=== PATIENT | female | born 1955 | race Caucasian/White ===

== ENCOUNTER 2017-10-14 05:05 | Inpatient (IN) | payer MEDICARE ==
[~2017-10-14] VITALS: Ht 165.1 cm; Wt 66.3 kg
--- NOTE | ~2017-10-14 | OP ---
PATIENT NAME: EDWIN CELESTE MEDICAL RECORD: [id number] :57 LOCATION:D.M2 D.2140 ADMISSION DATE:10/14/17 SURGEON: CHENCHO ROSE MD DATE OF OPERATION: 10/15/2017 PREOPERATIVE DIAGNOSIS: Perirectal abscess. POSTOPERATIVE DIAGNOSES: Perirectal abscess with no evidence of a perirectal fistula. PROCEDURES: 1. Anal evaluation under anesthesia. 2. Excisional debridement of perirectal abscess with marsupialization and packing of the wound. The dimensions of the debridement, including margins, measured 2.2 x 2.0 cm included skin and subcutaneous tissue as well as a portion of the abscess cavity. The risks, possible complications and alternatives to the procedure were explained to the patient. She elects to proceed. OPERATIVE COURSE: The patient was conveyed to the operating room electively on 10/15/2017. General anesthesia was induced by the anesthesia staff. The patient was placed in a lithotomy position. U-shaped anal retractors were placed within the anus. I identified the area where the abscess was pointing out on to the right buttock cheek and I injected a combination of hydrogen peroxide and methylene blue in through this area where the abscess was pointing. There was some purulent drainage and this was cultured. I examined within the anus and rectum and there was no bubbling of hydrogen peroxide or methylene blue in the anus or rectum and therefore, no evidence of a perirectal or perianal fistula. Utilizing sharp dissection with the scalpel, I excised a plug of tissue overlying the abscess cavity. The dimensions of the excision are listed above. I excised back to healthy bleeding tissue. Some blunt dissection in the abscess cavity was performed. It traveled up into the right labia majora. Also, laterally on the buttock and posteriorly. I curetted out the abscess cavity with a bone curette. Meticulous hemostasis was achieved with electrocautery. I irrigated with hydrogen peroxide. I then marsupialized the wound with a running locking 3-0 Vicryl Rapide suture. I then packed the wound with a Dakin's soaked Kerlix roll. A sterile dressing was then applied. The patient was then extubated and conveyed to the post-anesthesia care unit where she was in stable condition. I am going to likely change the antibiotics that she is on and I will plan to keep the packing in place for about 3 days before removing it. I would like for her to stay in the hospital for 3 days due to the large size of the abscess cavity. I believe that she needs intravenous antibiotics at this time. TRANSINT:[id number] Voice Confirmation ID: [id number] DOCUMENT ID: [id number] OPERATIVE REPORT [id number] EDWIN CELESTE ROBERT MD at 1047 CC: [id number] DICTATION DATE: 10/15/17 1112 ENDOSCOPY NURSE: 10/15/17 1128 DIS IN 10/17/17 [id number] [place] [address]
[2017-10-14] MEDS ORDERED: RANITIDINE H15 MG/ML PO (05:19)
[2017-10-14] MEDS ORDERED: BENADRYL25 MG (05:20)
[2017-10-14 07:42] LABS: APPEARANCE CLEAR (CLEAR); BILIRUBIN NEGATIVE (NEGATIVE); COLOR YELLOW (YELLOW); GLUCOSE NEGATIVE (NEGATIVE); KETONE NEGATIVE (NEGATIVE); NITRITE NEGATIVE (NEGATIVE); PROTEIN 1+ mg/dL (NEGATIVE); UROBILINOGEN NORMAL (NORMAL)
[2017-10-14 07:43] LABS: BACTERIA FEW /hpf (NONE SEEN); EPITHELIAL CELLS 0-5 /hpf (0-5); HYALINE CAST 0-5 /lpf (NONE SEEN); RED CELLS - URINE 0-5 /hpf (0-5); WHITE CELLS - URINE 0-5 /hpf (0-5)
[2017-10-14 07:49] LABS: UDS - AMPHET POSITIVE QUAL (NEGATIVE); UDS - BARB NEGATIVE QUAL (NEGATIVE); UDS - BENZO NEGATIVE QUAL (NEGATIVE); UDS - COCAINE NEGATIVE QUAL (NEGATIVE); UDS - OPIATE NEGATIVE QUAL (NEGATIVE); UDS - PCP NEGATIVE QUAL (NEGATIVE); UDS - THC POSITIVE QUAL (NEGATIVE)
[2017-10-14 09:02] LABS: BASOPHILS 0.1 % (0-2); EOSINOPHILS 0.6 % (0-7); HEMATOCRIT 27.3 % (36.0-48.0); HEMOGLOBIN 8.9 g/dL (12-16); IMMATURE GRANULOCYTES 0.5 % (0-5); LYMPHOCYTES 10.1 % (15-50); MCH 22.1 pg (26.0-34.0); MCHC 32.6 g/dL (31.0-37.0); MCV 67.7 fL (80.0-100.0); MEAN PLATELET VOLUME 9.9 fL (7.4-10.4); MONOCYTES 7.5 % (2-11); NEUTROPHILS 81.2 % (40-80); PLATELET COUNT 178 10x3/uL (130-400); RBC 4.03 10x6/uL (4.00-5.40); RDW 15.3 % (11.5-14.5); WBC 19.2 10x3/uL (4.8-10.8)
[2017-10-14 09:16] LABS: ALBUMIN 3.5 g/dL (3.4-5.0); ANION GAP 11.4 mmol/L (8-16); BILIRUBIN - TOTAL 0.51 mg/dL (0.2-1.3); CALCIUM 8.6 mg/dL (8.5-10.1); CARBON DIOXIDE 25.5 mmol/L (21.0-32.0); CREATININE - SERUM 1.3 mg/dL (0.6-1.3); POTASSIUM - SERUM 3.9 mmol/L (3.5-5.1); PROTEIN - SERUM 7.4 g/dL (6.4-8.2)
[2017-10-14 09:45] VITALS: BP 128/64
[2017-10-14 11:01] VITALS: BP 128/64; Ht 165.1 cm; Wt 66.3 kg
[2017-10-14 16:40] VITALS: BP 112/68
[2017-10-14 21:20] VITALS: BP 111/52
[2017-10-15 02:00] VITALS: BP 108/57
[2017-10-15 06:00] VITALS: BP 109/48
[2017-10-15 08:00] VITALS: BP 107/53
[2017-10-15 13:22] VITALS: BP 102/58
[2017-10-15 17:22] VITALS: BP 131/60
[2017-10-15 20:00] VITALS: BP 119/53
[2017-10-16] VITALS (7 sets, daily range): BP systolic 105–137; BP diastolic 39–101
[2017-10-16 05:05] LABS: BASOPHILS 0.1 % (0-2); EOSINOPHILS 0.9 % (0-7); HEMATOCRIT 22.9 % (36.0-48.0); IMMATURE GRANULOCYTES 0.2 % (0-5); LYMPHOCYTES 15.4 % (15-50); MCH 21.4 pg (26.0-34.0); MCHC 32.3 g/dL (31.0-37.0); MCV 66.4 fL (80.0-100.0); MEAN PLATELET VOLUME 9.6 fL (7.4-10.4); MONOCYTES 7.7 % (2-11); NEUTROPHILS 75.7 % (40-80); PLATELET COUNT 147 10x3/uL (130-400); RBC 3.45 10x6/uL (4.00-5.40); RDW 15.2 % (11.5-14.5)
[2017-10-16 05:08] LABS: HEMOGLOBIN 7.4 g/dL (12-16); WBC 10.5 10x3/uL (4.8-10.8)
[2017-10-16 05:20] LABS: ALKALINE PHOSPHATASE 161 U/L (46-116); ALT (SGPT) 27 U/L (10-68); BILIRUBIN - TOTAL 0.61 mg/dL (0.2-1.3); CARBON DIOXIDE 26.1 mmol/L (21.0-32.0); CHLORIDE - SERUM 105 mmol/L (98-107); GLUCOSE 97 mg/dL (74-106); MAGNESIUM - SERUM 1.6 mg/dL (1.8-2.4); PHOSPHOROUS 2.1 mg/dL (2.5-4.9); POTASSIUM - SERUM 3.5 mmol/L (3.5-5.1); PROTEIN - SERUM 5.9 g/dL (6.4-8.2); SODIUM 139 mmol/L (136-145)
[2017-10-16 05:26] LABS: ALBUMIN 2.6 g/dL (3.4-5.0); CALC OSMOLALITY 275 mosm/kg (275-300); CREATININE - SERUM 0.8 mg/dL (0.6-1.3); UREA NITROGEN 6 mg/dL (7-18); eGFR NON AFRICAN AMERICAN 77 mL/min (90-120)
[2017-10-17 04:00] VITALS: BP 142/83
[2017-10-17 05:46] LABS: BASOPHILS 0.1 % (0-2); EOSINOPHILS 1.1 % (0-7); HEMATOCRIT 23.6 % (36.0-48.0); IMMATURE GRANULOCYTES 0.5 % (0-5); LYMPHOCYTES 20.4 % (15-50); MCH 21.3 pg (26.0-34.0); MCHC 31.8 g/dL (31.0-37.0); MEAN PLATELET VOLUME 9.6 fL (7.4-10.4); MONOCYTES 8.9 % (2-11); PLATELET COUNT 176 10x3/uL (130-400); RBC 3.52 10x6/uL (4.00-5.40); RDW 15.1 % (11.5-14.5); WBC 8.1 10x3/uL (4.8-10.8)
[2017-10-17 05:53] LABS: HEMOGLOBIN 7.5 g/dL (12-16)
[2017-10-17 06:09] LABS: CALC OSMOLALITY 281 mosm/kg (275-300); CARBON DIOXIDE 32.1 mmol/L (21.0-32.0); CHLORIDE - SERUM 106 mmol/L (98-107); CREATININE - SERUM 0.8 mg/dL (0.6-1.3); GLUCOSE 93 mg/dL (74-106); POTASSIUM - SERUM 3.6 mmol/L (3.5-5.1); SODIUM 143 mmol/L (136-145); eGFR NON AFRICAN AMERICAN 77 mL/min (90-120)
[2017-10-17 06:10] LABS: MAGNESIUM - SERUM 2.1 mg/dL (1.8-2.4); UREA NITROGEN 3 mg/dL (7-18)
[2017-10-17 08:08] VITALS: BP 121/70
[2017-10-17 11:00] VITALS: BP 101/54
[2017-10-17 15:50] VITALS: BP 135/70
[2017-10-17] MEDS ORDERED: BACTRIM DS TABL1 TAB PO (17:59)
[2017-10-18 08:18] LABS: IMMUNOGLOBULIN A 153 mg/dL (87-352); IMMUNOGLOBULIN G 599 mg/dL (700-1600)
[2017-10-19 22:15] LABS: IMMUNOGLOBULIN E 393 IU/mL (0-100)
== END 2017-10-17 22:30 | disposition home or self-care (01) | DRG 356 ==
LOC: D.ER 05:05 → D.EDHOLD 07:47 → D.M2 07:47
PROVIDERS: Family Medicine; Internal Medicine Pulmonary Disease; Surgery
PROC: 0JB90ZZ Excision of Buttock Subcutaneous Tissue and Fascia, Open Approach (ICD-10-PCS; principal; 2017-10-15 09:00)
DX: K61.1 Rectal abscess (principal); J69.0 Pneumonitis due to inhalation of food and vomit; J95.89 Other postprocedural complications and disorders of respiratory system, not elsewhere classified; J44.1 Chronic obstructive pulmonary disease with (acute) exacerbation; M35.1 Other overlap syndromes; J98.11 Atelectasis; Y83.8 Other surgical procedures as the cause of abnormal reaction of the patient, or of later complication, without mention of misadventure at the time of the procedure; Y92.238 Other place in hospital as the place of occurrence of the external cause; F17.200 Nicotine dependence, unspecified, uncomplicated; J30.9 Allergic rhinitis, unspecified; K21.9 Gastro-esophageal reflux disease without esophagitis; E78.5 Hyperlipidemia, unspecified; N20.0 Calculus of kidney; D56.9 Thalassemia, unspecified; F15.90 Other stimulant use, unspecified, uncomplicated; F12.90 Cannabis use, unspecified, uncomplicated

== ENCOUNTER 2018-01-26 10:50 | Day surgery (SDC) | payer MEDICARE ==
[~2018-01-26] VITALS: Ht 165.1 cm; Wt 65.9 kg
--- NOTE | ~2018-01-26 | OP ---
PATIENT NAME: EDWIN CELESTE MEDICAL RECORD: [id number] :57 [facility] AD[facility] DATE: SURGEON: OSCAR ROSE MD DATE OF OPERATION: 01/27/2018 PREOPERATIVE DIAGNOSIS: Right medial thigh abscess. POSTOPERATIVE DIAGNOSIS: Right medial thigh abscess. PROCEDURES: Excisional debridement with marsupialization and packing of right medial thigh abscess. Dimensions of the debridement, including margins, measures 2.8 x 3.0 cm included skin and subcutaneous tissue as well as a portion of the abscess cavity. SURGEON: Oscar Rose MD REED POLISHER: None. BLOOD LOSS: Minimal. ANESTHESIA: General. COMPLICATIONS: None. The risks, possible complications, and alternatives to the procedure were explained to the patient. She elects to proceed. The patient has had cutaneous abscesses in the past. One was a perirectal abscess. We discussed the possible pathophysiology of these recurrent abscesses. In the future the patient may benefit from nasal decolonization. She does not have a primary care physician. I saw her in the office on and she was scheduled for surgery on Monday; however, the operative day ran long and it was not until well after midnight that her operation took place. OPERATIVE COURSE: The patient was conveyed to the operating room electively on 01/27/2018. General anesthesia was induced by the anesthesia staff. The patient was placed in a frog-leg position. The thigh and perineum were sterilely prepped and draped. Utilizing a scalpel, I excised the skin and subcutaneous tissue down into the abscess cavity. Purulence was identified. Cultures were obtained. This was a sharp debridement with a scalpel. The dimensions of debridement are listed above. I then obtained meticulous hemostasis with electrocautery. I then marsupialized the wound with a running locking 3-0 Vicryl Rapide suture. I irrigated with hydrogen peroxide. I then packed the wound with iodoform gauze. A sterile dressing was applied. The patient was then extubated and conveyed to post-anesthesia care unit where she was in stable condition. Due to the very engineer process hour, our plan that she will stay for several hours and be dismissed home later today. I am going to plan to send her home with doxycycline. I have already written her for an analgesic when I saw her in the office yesterday. TRANSINT:[id number] Voice Confirmation ID: [id number] DOCUMENT ID: [id number] 01/30/2018 Edited for syrup maker cook error, dmm. OPERATIVE REPORT [id number] EDWIN CELESTE, OSCAR GIFFORD at 1522 CC: [id number] DICTATION DATE: 01/27/18 0424 ASSEMBLY LINE SUPERVISOR: 01/27/18 0553 [facility] 01/27/18 [place] [id number] [place] [id number]
[~2018-01-26 10:50] MED LIST: BACTRIM DS TABL1 TAB PO; BENADRYL25 MG; RANITIDINE H15 MG/ML PO
[2018-01-26] MEDS ORDERED: NORCO 5/325 TAB1 TAB PO (13:13)
[2018-01-26 13:20] VITALS: BP 126/74; BMI 24.3
[2018-01-26 22:33] LABS: HEMATOCRIT 31.2 % (36.0-48.0); HEMOGLOBIN 9.8 g/dL (12-16); MCH 21.8 pg (26.0-34.0); MCHC 31.4 g/dL (31.0-37.0); MCV 69.5 fL (80.0-100.0); MEAN PLATELET VOLUME 9.3 fL (7.4-10.4); RBC 4.49 10x6/uL (4.00-5.40); RDW 14.4 % (11.5-14.5); WBC 6.9 10x3/uL (4.8-10.8)
[2018-01-26 22:42] LABS: CALC OSMOLALITY 277 mosm/kg (275-300); CALCIUM 8.8 mg/dL (8.5-10.1); CARBON DIOXIDE 28.5 mmol/L (21.0-32.0); CHLORIDE - SERUM 105 mmol/L (98-107); CREATININE - SERUM 0.8 mg/dL (0.6-1.3); GLUCOSE 86 mg/dL (74-106); POTASSIUM - SERUM 3.6 mmol/L (3.5-5.1); SODIUM 140 mmol/L (136-145); UREA NITROGEN 12 mg/dL (7-18); eGFR NON AFRICAN AMERICAN 77 mL/min (90-120)
[2018-01-27] VITALS: BP 150/68
[2018-01-27 01:29] VITALS: BP 150/68; Ht 165.1 cm; Wt 65.9 kg
[2018-01-27 05:11] VITALS: BP 110/60
[2018-01-27 07:29] LABS: ANION GAP 11.8 mmol/L (8-16); BILIRUBIN - TOTAL 0.29 mg/dL (0.2-1.3); CALCIUM 8.5 mg/dL (8.5-10.1); CARBON DIOXIDE 27.8 mmol/L (21.0-32.0); POTASSIUM - SERUM 3.6 mmol/L (3.5-5.1); PROTEIN - SERUM 6.4 g/dL (6.4-8.2)
[2018-01-27 13:15] VITALS: BP 124/68
[2018-01-27] MEDS ORDERED: MONODOX100 MG PO (14:12)
== END 2018-01-27 17:45 | disposition home or self-care (01) ==
LOC: D.OPS 10:50 → D.MS 21:26 → D.OPS 01-27 17:45
PROVIDERS: Anesthesiology; Surgery
DX: L02.415 Cutaneous abscess of right lower limb (principal); Z01.812 Encounter for preprocedural laboratory examination

== ENCOUNTER 2019-01-05 11:21 | Emergency (ER) | payer MEDICARE ==
[~2019-01-05] VITALS: Ht 165.1 cm; Wt 63.6 kg
[~2019-01-05 11:21] MED LIST changes: +MONODOX100 MG PO; +NORCO 5/325 TAB1 TAB PO
[2019-01-05 11:52] VITALS: Ht 165.1 cm; Wt 63.6 kg
[2019-01-05] MEDS ORDERED: HYDROCODON-ACE1 EA10 PO (16:27)
[2019-01-05] MEDS ORDERED: VIBRAMYCIN 100100 MG PO (16:27)
[2019-01-05 17:01] VITALS: BP 122/68
== END 2019-01-05 17:02 | disposition home or self-care (01) ==
LOC: D.ER 11:21
DX: L02.215 Cutaneous abscess of perineum (principal); J45.909 Unspecified asthma, uncomplicated; Z72.0 Tobacco use